=== PATIENT | female | born 1955 | race Caucasian/White ===

== ENCOUNTER 2019-07-14 05:13 | Emergency (ER) | payer BC ==
[~2019-07-14] VITALS: Ht 162.6 cm; Wt 77.1 kg
--- NOTE | 2019-07-14 05:14 | NUR ---
Placed in room 1 . Placed on monitor and storage bin tender, blood pressure machine and pulse oximeter. To gown for exam. Side rails up. Report given to JOCELYNN SÁNCHEZ.
--- NOTE | 2019-07-14 05:15 | NUR ---
EKG performed at by ROLO SÁNCHEZ. Physician given copy of EKG for review.
--- NOTE | 2019-07-14 05:16 | NUR ---
Note tolu in [facility] - 07/14/19 at 0551 by SNOW Placed in room 2 . Placed on inside account representative, blood pressure machine and pulse oximeter. To gown for exam. Side rails up. Report given to JOECLYNN SÁNCHEZ.
[2019-07-14 05:17] VITALS: BP_SYST 164
--- NOTE | 2019-07-14 05:17 | NUR ---
BIB C/O SUDDEN ONSET CONSTANT SUBSTERNAL RADIATING TO THE BACK CHEST PAIN W/ N/V/SOB.PT STS WOKE HER UP FROM SLEEP AND NOTED EPIGASTRIC PAIN ONSET AN HOUR AGO.WILL CONT TO MONITOR.
--- NOTE | 2019-07-14 05:18 | NUR ---
ER at bedside examining patient.
[2019-07-14] MEDS ORDERED: NACL 0.9% 1,000 ML IV ONE (05:19)
[2019-07-14] MEDS ORDERED: MORPHINE SULFATE 10 MG/ML VIAL IVP ONE (05:30)
[2019-07-14] MEDS ORDERED: ONDANSETRON HCL 4 MG/2 ML VIAL IVP ONE (05:30)
--- NOTE | 2019-07-14 05:33 | NUR ---
# 20 gauge angiocath placed to left ac. Use of asceptic technique. Opsite placed over site. Blood return noted. Blood for lab drawn from site. Flushed with 10 cc of normal saline. No evidence of infiltration noted. Patient tolerated well.
--- NOTE | 2019-07-14 05:43 | NUR ---
CXY PERFORMED AT THE BEDSIDE.PT TOLERATED WELL.
[2019-07-14 05:50] LABS: BASOPHILS % (AUTO) 0.6 % (0.0-2.0); EOSINOPHILS # (AUTO) 0.1 K/uL (0.0-0.4); EOSINOPHILS % (AUTO) 2.4 % (0.0-4.0); HEMATOCRIT 44.9 % (36-48); HEMOGLOBIN 15.1 g/dL (12.0-16.0); LYMPHOCYTES # (AUTO) 2.3 K/uL (1.0-5.5); LYMPHOCYTES % (AUTO) 39.1 % (20.5-51.5); MEAN CORPUSCULAR HEMOGLOBIN 31 pg (27-31); MEAN CORPUSCULAR HGB CONC 34 % (32-36); MEAN CORPUSCULAR VOLUME 92 fL (79.0-98.0); MONOCYTES # (AUTO) 0.5 K/uL (0.0-1.0); MONOCYTES % (AUTO) 8.5 % (1.7-9.3); NEUTROPHILS # (AUTO) 2.9 K/uL (1.8-7.7); NEUTROPHILS % (AUTO) 49.4 % (40.0-70.0); PLATELET COUNT (AUTO) 243 K/uL (130-430); RED BLOOD CELL COUNT(AUTO) 4.91 MIL/uL (4.2-6.2); RED CELL DISTRIBUTION WIDTH 12.4 % (9.0-15.0); WHITE BLOOD COUNT (AUTO) 5.9 K/uL (4.8-10.8)
--- NOTE | 2019-07-14 05:59 | NUR ---
CARE ENDORSE TO JOCELYNN SÁNCHEZ
[2019-07-14 06:04] LABS: ANION GAP 9 (5-15); CALCIUM 9.5 mg/dL (8.4-11.0); CHLORIDE 102 mmol/L (98-107); CREATININE 0.83 mg/dL (0.55-1.30); GFR AFRICAN AMERICAN 90 mL/min (>90); GLUCOSE 116 mg/dL (70-99); POTASSIUM 3.9 mmol/L (3.5-5.1); SODIUM SERUM 139 mmol/L (136-145); UREA NITROGEN, BLOOD 15 mg/dL (8-21)
[2019-07-14 06:45] VITALS: BP_SYST 148
--- NOTE | 2019-07-14 06:45 | NUR ---
Patient given written and verbal discharge instructions and verbalizes understanding. ER MD discussed with patient the results and treatment provided. Patient in stable condition. ID arm band removed. IV catheter removed intact and dressing applied, no active bleeding. Patient educated on pain management and to follow up with PMD. Pain Scale 0/10 Opportunity for questions provided and answered.
[2019-07-14 11:59] LABS: ALANINE AMINOTRANSFERASE 42 U/L (12-78); ALBUMIN 3.9 g/dL (3.4-4.8); AMYLASE 49 U/L (0-100); ASPARTATE AMINOTRANSFERASE 14 U/L (10-37); LIPASE 266 U/L (73-393)
[2019-07-14 12:00] LABS: TOTAL BILIRUBIN 0.4 mg/dL (0.0-1.0)
== END 2019-07-14 06:45 | disposition home or self-care (01) ==
LOC: SED 05:13
DX: R10.13 Epigastric pain (principal); R11.2 Nausea with vomiting, unspecified; R19.7 Diarrhea, unspecified
CPT/HCPCS: 36415; 71045; 80053; 82150; 83690; 84484; 85025; 93005; 96361; 96374; 96375; 99285; J2270; J2405